=== PATIENT | male | born 1995 | race Hispanic/Latino ===

== ENCOUNTER 2017-10-22 15:27 | Emergency (ER) | payer OTHER ==
[2017-10-22 16:04] LABS: Absolute Lymphocytes (CBC) 1.6 K/uL (0.7-4.9); Absolute Monocytes 0.7 K/uL (0.1-1.3); Absolute Neutrophil 2.4 K/uL (1.8-8.0); Basophils % 0.5 % (0-1.3); Eosinophils % 4.5 % (0-4.4); Hematocrit 45.7 % (39.6-49.0); Lymphocytes % 32.6 % (15.3-44.8); MCH 31.3 pg (27.0-35.0); MCV 90.7 fL (80-100); MPV 7.9 fL (7.6-11.3); Monocytes % 14.7 % (3.3-12.3); RBC Red Blood Cell Count 5.04 M/uL (4.33-5.43)
[2017-10-22 16:18] LABS: Albumin 3.8 g/dL (3.4-5.0); Bilirubin Direct 0.2 mg/dL (0-0.2); Bilirubin Total 0.8 mg/dL (0.2-1.0); Potassium 3.7 mmol/L (3.5-5.1); Protein, Total 7.6 g/dL (6.4-8.2)
[2017-10-22] MEDS ORDERED: NA CHLORIDE 0.9% 1,000 ML ONE (16:19)
[2017-10-22 16:44] LABS: Urine Blood NEGATIVE (NEG); Urine Glucose NEGATIVE (NEG); Urine Protein NEGATIVE (NEG); Urine Specific Gravity >1.030 (1.005-1.030); Urine pH 5.5 (5.0-7.0)
[2017-10-22 16:46] LABS: Urine Bacteria NONE SEEN /HPF (NONE SEEN); Urine Culture Reflex Order NOT NEEDED; Urine RBC <5 /HPF (NONE SEEN)
--- NOTE | 2017-10-22 18:06 | RAD REPORT ---
EXAM DESCRIPTION: CT - Abdomen Pelvis W Contrast - 10/22/2017 5:51 pm CLINICAL HISTORY: periumbilical pain<Reason For Exam>periumbilical pain COMPARISON: No comparisons<Comparisons> None. TECHNIQUE: Biphasic, helical CT imaging of the abdomen and pelvis was performed following 100 ml non -ionic IV contrast. Oral contrast was given. All CT scans are performed using dose optimization technique as appropriate and may include automated exposure control or mA/KV adjustment according to patient size. FINDINGS: No suspicious findings in the lung bases. The liver, spleen, and pancreas show no suspicious findings. Gallbladder and biliary tree are also wi thout suspicious finding. Symmetric renal function is seen with no hydronephrosis or suspicious renal mass. No pyelonephritis o r renal parenchymal abnormality. Adrenal glands are unremarkable. No urinary bladder abnormality. No dilated bowel loops or bowel wall thickening. Appendix is identified and normal. No free air, free fluid or inflammatory stranding. No mass or bulky lymphadenopathy. A 3 centimeter fat only umbilica l hernia is present. No bowel involvement. There is a trace amount of stranding in the fat near the n shandra of the hernia. This is potentially symptomatic. The patient does have numerous small to moderate sized mesenteric lymph nodes. Nonspecific enteritis or mesenteric adenitis is a potential source for pain as well. No suspicious bony findings. IMPRESSION: No appendicitis or other surgically emergent finding. Patient has multiple mesenteric lymph nodes present. Mesenteric adenitis or nonspecific enteritis are potential sources for patient pain. Additionally, the patient has a 3 centimeter umbilical hernia. This contains only fat and no bowel. M inimal congestion of the fat is seen indicating that it is potentially symptomatic.
--- NOTE | 2017-10-22 18:31 | EDPHYS ---
Physician Documentation [facility] Name: Nicholas Turpin III Age: 22 yrs Sex: Male : 1995 Arrival Date: 10/22/2017 Time: 15:29 Bed 8 Private MD: Out, [facility] ED Physician Guru Costa HPI: 10/22 15:48 This 22 yrs old Male presents to ER via Ambulatory with complaints of cp Abdominal Pain. 15:48 The patient presents with abdominal pain in the periumbilical area. Onset: The cp symptoms/episode began/occurred 2 day(s) ago. The symptoms do not radiate. Associated signs and symptoms: Pertinent negatives: nausea and vomiting, blood in stools, chest pain, constipation, diarrhea, dysuria, fever, testicular pain. Historical: - Allergies: 15:35 No Known Allergies; aj - Home Meds: 15:35 None [Active]; aj - PMHx: 15:35 None; aj - PSHx: 15:35 None; aj - Immunization history:: Adult Immunizations up to date. - Social history:: Smoking status: Patient uses tobacco products, denies chronic smoking, but will smoke occasionally. - Ebola Screening: : Patient negative for fever greater than or equal to 101.5 degrees Fahrenheit, and additional compatible Ebola Virus Disease symptoms Patient denies exposure to infectious person Patient denies travel to an Ebola-affected area in the 21 days before illness onset No symptoms or risks identified at this time. ROS: 15:48 Eyes: Negative for injury, pain, redness, and discharge. cp 15:48 Constitutional: Negative for body aches, chills, fever, poor PO intake. 15:48 ENT: Negative for drainage from ear(s), ear pain, sore throat, difficulty swallowing, difficulty handling secretions. 15:48 Cardiovascular: Negative for chest pain, edema, palpitations. 15:48 Respiratory: Negative for cough, shortness of breath, wheezing. 15:48 Abdomen/GI: Positive for abdominal pain, Negative for nausea, vomiting, and diarrhea, constipation, anorexia, black/tarry stool, rectal bleeding. 15:48 Back: Negative for radiated pain. 15:48 : Negative for urinary symptoms, testicular pain 15:48 Skin: Negative for cellulitis, rash. 15:48 Neuro: Negative for altered mental status, dizziness, headache, weakness. 15:48 All other systems are negative. Exam: 15:55 Constitutional: The patient appears in no acute distress, alert, awake, comfortable, cp non-toxic, well developed, well nourished. 15:55 Head/Face: Normocephalic, atraumatic. cp 15:55 Eyes: Periorbital structures: appear normal, Conjunctiva: normal, no exudate, no injection, Sclera: no appreciated abnormality, Lids and lashes: appear normal, bilaterally. 15:55 ENT: External ear(s): are unremarkable, Nose: is normal, Mouth: Lips: moist, Oral mucosa: pink and intact, moist, Posterior pharynx: is normal, airway is patent, no erythema, no exudate, Voice: is normal. 15:55 Neck: External neck: is normal, ROM/movement: is normal, is supple, without pain, no range of motions limitations, no nuchal rigidity. 15:55 Chest/axilla: Inspection: normal, Palpation: is normal, no crepitus, no tenderness. 15:55 Cardiovascular: Rate: normal, Rhythm: regular. 15:55 Respiratory: the patient does not display signs of respiratory distress, Respirations: normal, no use of accessory muscles, no retractions, no splinting, no tachypnea, Breath sounds: are clear throughout, no decreased breath sounds, no stridor, no wheezing. 15:55 Abdomen/GI: Inspection: abdomen appears normal, Bowel sounds: active, all quadrants, Palpation: soft, in all quadrants, moderate abdominal tenderness, in the umbilical area, rebound tenderness, is not appreciated, voluntary guarding, is elicited in the umbilical area, Hernia: noted in the umbilical area, tenderness, that is moderate. 15:55 Back: pain, is absent, ROM is normal. 15:55 Skin: cellulitis, is not appreciated, no rash present. Vital Signs: 15:35 BP 141 / 73; Pulse 78; Resp 16; Temp 98.5; Pulse Ox 100% on R/A; Weight 104.33 kg; aj Height 5 ft. 9 in. (175.26 cm); 16:33 BP 129 / 77; Pulse 85; Resp 16 S; Pulse Ox 99% on R/A; jl7 16:52 BP 129 / 77; Pulse 69; Resp 16; Pulse Ox 98% ; jl7 18:23 BP 124 / 66; Pulse 75; Resp 16; Pulse Ox 98% ; jl7 15:35 Body Mass Index 33.96 (104.33 kg, 175.26 cm) aj MDM: 15:38 Patient medically screened. cp 16:00 Differential diagnosis: appendicitis, gastritis, non-specific abd pain, pancreatitis, cp Ureterolithiasis, urinary tract infection, incarcerated hernia. 18:30 Data reviewed: vital signs, nurses notes, lab test result(s), radiologic studies, CT cp scan. 18:30 Counseling: I had a detailed discussion with the patient and/or guardian regarding: the cp historical points, exam findings, and any diagnostic results supporting the discharge/admit diagnosis, lab results, radiology results, the need for outpatient follow up, a general surgeon, to return to the emergency department if symptoms worsen or persist or if there are any questions or concerns that arise at home. Special discussion: Based on the patient's Hx, exam, and Dx evaluation, there is no indication for emergent surgery or inpatient Tx. It is understood by the patient/guardian that if the Sx's persist or worsen they need to return immediately for re-evaluation. 10/22 15:42 Order name: Amylase, Serum; Complete Time: 16:55 cp 10/22 15:42 Order name: Basic Metabolic Panel; Complete Time: 16:55 cp 10/22 16:55 Interpretation: Normal except: GFR 82. cp 10/22 15:42 Order name: CBC with Diff; Complete Time: 16:10 cp 10/22 16:10 Interpretation: Normal except: MN% 14.7; EOSINOPHIL % 4.5. cp 10/22 15:42 Order name: Creatinine for Radiology; Complete Time: 16:55 cp 10/22 15:42 Order name: Hepatic Function; Complete Time: 16:55 cp 10/22 16:56 Interpretation: Normal except: GLOB 3.8; A/G 1.0. cp 10/22 15:42 Order name: Lipase; Complete Time: 16:55 cp 10/22 15:42 Order name: Urine Microscopic Only; Complete Time: 16:55 cp 10/22 15:42 Order name: IV Saline Lock; Complete Time: 16:08 cp 10/22 15:42 Order name: Labs collected and sent; Complete Time: 16:08 cp 10/22 15:42 Order name: Urine Dipstick-Ancillary (obtain specimen); Complete Time: 16:08 10/22 15:42 Order name: CT Abd/Pelvis - W/Contrast; Complete Time: 18:11 10/22 18:12 Interpretation: Report reviewed. 10/22 16:37 Order name: Urine Dipstick--Ancillary (enter results); Complete Time: 16:55 bd Administered Medications: 16:47 Drug: NS 0.9% 1000 ml Route: IV; Rate: 1 bolus; Site: right antecubital; jl7 17:30 Follow up: IV Status: Completed infusion jl7 Disposition: 10/23 08:08 Co-signature as Attending Physician, Guru Costa MD. rn Disposition: 10/22/17 18:30 Discharged to Home. Impression: Umbilical hernia without obstruction or gangrene. - Condition is Stable. - Discharge Instructions: Hernia, Adult. - Medication Reconciliation Form, Thank You Letter, Antibiotic Education, Prescription Opioid Use form. - Follow up: Chris Rodríguez MD; When: 1 - 2 days; Reason: umbilical hernia. - Problem is new. - Symptoms have improved. - Notes: Light Duty with no heavy lifting, excessive bending or stooping until evaluation by surgeon Signatures: Dispatcher [employer] EDNany Baxter RN RN aj Nieto, Roman, MD MD rn Page, Corey, PA PA cp Leal, Jahala RN RN jl7 Corrections: (The following items were deleted from the chart) 10/22 18:49 18:30 10/22/2017 18:30 Discharged to Home. Impression: Umbilical hernia without jl7 obstruction or gangrene. Condition is Stable. Forms are Medication Reconciliation Form, Thank You Letter, Antibiotic Education, Prescription Opioid Use. Follow up: Chris Rodríguez; When: 1 - 2 days; Reason: umbilical hernia. Problem is new. Symptoms have improved. cp
--- NOTE | 2017-10-22 18:31 | ER ---
Nurse's Notes [facility] Name: Nicholas Turpin III Age: 22 yrs Sex: Male : 1995 Arrival Date: 10/22/2017 Time: 15:29 Bed 8 Private MD: Out, [facility] Diagnosis: Umbilical hernia without obstruction or gangrene Presentation: 10/22 15:34 Presenting complaint: Patient states: Upper abdominal pain and vomiting that started 2 aj days ago. Patient reports "my belly button popped out". Transition of care: patient was not received from another setting of care. Onset of symptoms was October 20, 2017. Risk Assessment: Do you want to hurt yourself or someone else? Patient reports no desire to harm self or others. Initial Sepsis Screen: Does the patient meet any 2 criteria? No. Patient's initial sepsis screen is negative. Does the patient have a suspected source of infection? No. Patient's initial sepsis screen is negative. Care prior to arrival: None. 15:34 Method Of Arrival: Ambulatory aj 15:34 Acuity: GLO 3 aj Triage Assessment: 15:35 General: Appears in no apparent distress. comfortable, Behavior is calm, cooperative, aj appropriate for age. Pain: Complains of pain in right upper quadrant and left upper quadrant. Neuro: Level of Consciousness is awake, alert, obeys commands, Oriented to person, place, time, situation, Appropriate for age. Respiratory: Airway is patent Respiratory effort is even, unlabored, Respiratory pattern is regular, symmetrical. GI: Abdomen is flat, non-distended. GI: Reports upper abdominal pain, nausea, vomiting. Derm: Skin is intact, is healthy with good turgor, Skin is pink, warm \\T\\ dry. normal. Historical: - Allergies: 15:35 No Known Allergies; aj - Home Meds: 15:35 None [Active]; aj - PMHx: 15:35 None; aj - PSHx: 15:35 None; aj - Immunization history:: Adult Immunizations up to date. - Social history:: Smoking status: Patient uses tobacco products, denies chronic smoking, but will smoke occasionally. - Ebola Screening: : Patient negative for fever greater than or equal to 101.5 degrees Fahrenheit, and additional compatible Ebola Virus Disease symptoms Patient denies exposure to infectious person Patient denies travel to an Ebola-affected area in the 21 days before illness onset No symptoms or risks identified at this time. Screenin:33 Abuse screen: Denies threats or abuse. Denies injuries from another. Nutritional jl7 screening: No deficits noted. Tuberculosis screening: No symptoms or risk factors identified. Fall Risk IV access (20 points). Total Montesinos Fall Scale indicates No Risk (0-24 pts). Assessment: 15:55 General: Appears in no apparent distress. uncomfortable, Behavior is calm, cooperative, jl7 appropriate for age. Pain: Complains of pain in umbilical area Pain does not radiate. Pain currently is 8 out of 10 on a pain scale. Pain began 1 day ago. Is continuous. Neuro: Level of Consciousness is awake, alert, obeys commands, Oriented to person, place, time, situation. Cardiovascular: Patient's skin is warm and dry. Respiratory: Airway is patent Respiratory effort is even, unlabored, Respiratory pattern is regular, symmetrical. GI: Stools are reported to be normal. Last BM was October 21, 2017. Bowel sounds present X 4 quads. Abd is soft X 4 quads Abdomen is tender to palpation in umbilical area Reports diarrhea, nausea, vomiting. : No signs and/or symptoms were reported regarding the genitourinary system. EENT: No signs and/or symptoms were reported regarding the EENT system. Derm: Skin is pink, warm \\T\\ dry. Decubitus. Musculoskeletal: No signs and/or symptoms reported regarding the musculoskeletal system. 16:13 Reassessment: Pt done drinking contrast. CT notified. jl7 17:30 Reassessment: No changes from previously documented assessment. Patient and/or family jl7 updated on plan of care and expected duration. Pain level reassessed. Patient is alert, oriented x 3, equal unlabored respirations, skin warm/dry/pink. Vital Signs: 15:35 BP 141 / 73; Pulse 78; Resp 16; Temp 98.5; Pulse Ox 100% on R/A; Weight 104.33 kg; aj Height 5 ft. 9 in. (175.26 cm); 16:33 BP 129 / 77; Pulse 85; Resp 16 S; Pulse Ox 99% on R/A; jl7 16:52 BP 129 / 77; Pulse 69; Resp 16; Pulse Ox 98% ; jl7 18:23 BP 124 / 66; Pulse 75; Resp 16; Pulse Ox 98% ; jl7 15:35 Body Mass Index 33.96 (104.33 kg, 175.26 cm) ED Course: 15:29 Patient arrived in ED. sb2 15:29 Out, [facility] is Private Physician. sb2 15:35 Triage completed. aj 15:35 Arm band placed on right wrist. Patient placed in an exam room. aj 15:37 Chandrakant Lam, HARRIET is Primary Nurse. jl7 15:38 Alex Mckenzie PA is PHCP. cp 15:38 Guru Costa MD is Attending Physician. cp 16:33 Patient has correct armband on for positive identification. Bed in low position. Call jl7 light in reach. Side rails up X 1. Pulse ox on. NIBP on. 16:33 Initial lab(s) drawn, by me, sent to lab. Urine collected: clean catch specimen. jl7 Inserted saline lock: 20 gauge in right antecubital area, using aseptic technique. Blood collected. 17:[address] via wheelchair. mn 17:51 CT Abd/Pelvis - W/Contrast In Process Unspecified. EDMS 18:30 Chris Rodríguez MD is Referral Physician. cp 18:47 No provider procedures requiring assistance completed. IV discontinued, intact, jl7 bleeding controlled, No redness/swelling at site. Pressure dressing applied. Administered Medications: 16:47 Drug: NS 0.9% 1000 ml Route: IV; Rate: 1 bolus; Site: right antecubital; jl7 17:30 Follow up: IV Status: Completed infusion jl7 Outcome: 18:30 Discharge ordered by MD. cp 18:47 Discharged to home ambulatory. jl7 18:47 Condition: stable 18:47 Discharge instructions given to patient, family, Instructed on discharge instructions, follow up and referral plans. Demonstrated understanding of instructions, follow-up care. 18:49 Patient left the ED. jl7 Signatures: Dispatcher [employer] EDMS Nany Girard, RN RN Alex Estrada PA PA cp Jordan, Nathan nj Leal, Jahala, RN RN jl7 Diamante Mueller sb2
== END 2017-10-22 18:49 | disposition home or self-care (01) ==
LOC: ER 15:27
DX: K42.9 Umbilical hernia without obstruction or gangrene (principal); F17.200 Nicotine dependence, unspecified, uncomplicated
CPT/HCPCS: 36415; 74177; 80048; 80076; 81003; 81015; 82150; 83690; 85025; 96360; 99284; J7030; Q9967